=== PATIENT | female | born 2000 | race Caucasian/White ===

== ENCOUNTER 2024-01-20 20:46 | Emergency (ER) | payer MEDICAID ==
[~2024-01-20] VITALS: Ht 170.2 cm; Wt 68.0 kg
[2024-01-20 22:33] LABS: APPEARANCE,URINE TURBID (CLEAR); BILIRUBIN,URINE NEGATIVE (NEGATIVE); BLOOD, URINE NEGATIVE Ery/uL (NEGATIVE); COLOR,URINE YELLOW (YELLOW); KETONES,URINE NEGATIVE (NEGATIVE); LEUKOCYTE ESTERASE ,URINE TRACE (NEGATIVE); NITRITE, URINE NEGATIVE (NEGATIVE); PROTEIN,URINE NEGATIVE (NEGATIVE); UGLUCOSE NEGATIVE (NEGATIVE); UROBILINOGEN,URINE 0.2 EU/dL (0.2)
[2024-01-20 22:42] LABS: PREGNANCY TEST URINE QUAL NEGATIVE (NEGATIVE)
[2024-01-20] MEDS ORDERED: DOXY100T2 PO (23:10)
[2024-01-20] MEDS ORDERED: LIDOCAINE /MPF 1% VIAL 5 ML VIAL ONE (23:19)
[2024-01-20 23:20] LABS: ADD URINE CULTURE NO; BACTERIA,URINE 1+ /HPF (None Seen); RBC,URINE 0-2 /HPF (0-2); URINE AMORPHOUS URATE Many /HPF (None Seen)
[2024-01-20 23:30] VITALS: BP 122/63; TEMP 98; O2SAT 100
[2024-01-20] MEDS ORDERED: CEFTRIAXONE 1GM BAG (ER ONLY) 1 GM/50 ML PIGGYBACK IV ONE (23:30)
[2024-01-20] MEDS ORDERED: CEFTRIAXONE 1 G VIAL IM ONE (23:30)
== END 2024-01-20 23:31 | disposition home or self-care (01) ==
LOC: ER 20:51
DX: N39.0 Urinary tract infection, site not specified (principal)
CPT/HCPCS: 99283; 96372; 84703; 81001; J0696; J3490